=== PATIENT | female | born 1955 | race Two or more races ===

== ENCOUNTER 2018-05-01 20:33 | Inpatient (IN) | payer OTHER, MEDICAID ==
[~2018-05-01] VITALS: Ht 154.9 cm; Wt 57.4 kg
[~2018-05-01 20:33] MED LIST: ASPI81TA52 PO; HYDR12.522 PO; OMEP-84 PO; VALS160T2 PO
[2018-05-01] MEDS ORDERED: temazepam 15mg capsule PO PRN (21:00)
[2018-05-01 21:02] LABS: BASOPHILS % (AUTO) 0.5 % (0-1); EOSINOPHILS # (AUTO) 0.2 X10'3 (0-0.9); HEMATOCRIT 43.7 % (35.0-45.0); HEMOGLOBIN 14.7 g/dl (12.0-16.0); LYMPHOCYTES # (AUTO) 2.5 X10'3 (1.1-4.8); LYMPHOCYTES % (AUTO) 36.2 % (21-51); MEAN CORPUSCULAR HEMOGLOBIN 31.2 PG (27.0-31.0); MEAN CORPUSCULAR HGB CONC 33.6 % (33.0-36.5); MEAN CORPUSCULAR VOLUME 92.9 FL (78-98); MEAN PLATELET VOLUME 7.8 FL (7.4-10.4); MONOCYTES # (AUTO) 0.6 X10'3 (0-0.9); NEUTROPHILS # (AUTO) 3.6 X10'3 (1.8-7.7); NEUTROPHILS % (AUTO) 52.3 % (42-75); PLATELET COUNT 261 X10'3 (140-440); RED CELL DISTRIBUTION WIDTH 12.8 % (11.5-14.5); WHITE BLOOD COUNT 6.9 X10'3 (4.5-11.0)
[2018-05-01 21:18] LABS: ALANINE AMINOTRANSFERASE 29 U/L (12-78); ALKALINE PHOSPHATASE 135 IU/L (46-116); ANION GAP 8 (8-16); ASPARTATE AMINO TRANSFERASE 23 U/L (10-37); BILIRUBIN,TOTAL 0.4 MG/DL (0.1-1.0); BLOOD UREA NITROGEN 17 MG/DL (7-18); BUN/CREATININE RATIO 19.1 (6.6-38.0); CALCIUM 9.5 MG/DL (8.5-10.1); CHLORIDE 103 MMOL/L (99-107); CREATININE 0.89 MG/DL (0.40-0.90); GLUCOSE 119 MG/DL (70-104); POTASSIUM 3.3 MMOL/L (3.5-5.1); SODIUM 141 MMOL/L (135-145); TOTAL CARBON DIOXIDE 29.9 MMOL/L (24-32); TOTAL PROTEIN 8.1 G/DL (6.4-8.2); eGFR 64 ML/MIN
[2018-05-01 21:24] LABS: PARTIAL THROMBOPLASTIN TIME 27 SECONDS (22-32)
[2018-05-01] MEDS ORDERED: acetaminophen 325mg tablet PO PRN ×2 (22:55)
[2018-05-01] MEDS ORDERED: morphine 2 MG/ML inj. syringe IV PRN (22:55)
[2018-05-01] MEDS ORDERED: metoclopramide 5 mg/ml inj IV PRN (22:55)
[2018-05-01] MEDS ORDERED: mag hydrox/Alum hydrox/simeth 30ml oral suspension PO PRN (22:55)
[2018-05-01] MEDS ORDERED: HYDROmorphone 1 mg/ml syringe IV PRN (22:55)
[2018-05-01] MEDS ORDERED: bisacodyl 10mg suppository rectal RC PRN (22:55)
[2018-05-01] MEDS ORDERED: HYDROcodone/acetaminophen 10/325mg tab PO PRN (22:55)
[2018-05-01] MEDS ORDERED: ondansetron/PF 4mg/2ml inj IV PRN (22:55)
[2018-05-01] MEDS ORDERED: potassium Cl 20 mEq SR tablet PO PRN ×2 (22:55)
[2018-05-01] MEDS ORDERED: diphenhydrAMINE 50 mg/ml inj IV PRN (22:55)
[2018-05-01] MEDS ORDERED: potassium Cl 40MEQ/NS 500ml 500 ML IV PRN ×2 (22:55)
[2018-05-01] MEDS ORDERED: acetaminophen 650mg rectal suppository RC PRN (22:55)
[2018-05-01] MEDS ORDERED: diphenhydrAMINE 25mg capsule PO PRN (22:55)
[2018-05-01] MEDS ORDERED: magnesium hydroxide 30ml (MOM) UD suspension PO PRN (22:55)
[2018-05-01] MEDS ORDERED: iohexol 350MG/ML 100ml bottle IV ONE (23:03)
[2018-05-01] MEDS ORDERED: metoprolol tartrate 1mg/ml inj IV PRN (23:05)
[2018-05-01] MEDS ORDERED: nitroGLYCERIN 0.4mg SUBLingual tab SL PRN (23:05)
[2018-05-01] MEDS ORDERED: aminophylline 250mg/10ml inj. IV PRN (23:05)
[2018-05-01] MEDS ORDERED: regadenoson 0.4mg/5ml syringe IV ONE (23:05)
[2018-05-01] MEDS ORDERED: MESSAGE TO PHARMACY PO ONE (23:10)
[2018-05-01] MEDS ORDERED: insulin Lispro (HumaLOG) vial - multi-dose SQ SCH (23:10)
[2018-05-01] MEDS ORDERED: dextrose ORAL solution 15 GM/59 ML bottle PO PRN ×2 (23:10)
[2018-05-01] MEDS ORDERED: glucagon, human recombinant 1mg kit SUBCUT PRN (23:10)
[2018-05-01] MEDS ORDERED: dextrose 50%-water 50ml dispensing syringe IV PRN ×2 (23:10)
[2018-05-01 23:30] LABS: D-DIMER < 0.19 MG/L FEU (0-0.50)
[2018-05-01] MEDS: nitroGLYCERIN-Tridil 50MG/D5W 250 ML IV SCH (23:30)
[2018-05-01 23:32] LABS: LIPASE 324 U/L (73-393)
[2018-05-01 23:41] LABS: HEMOGLOBIN A1C 6.6 % (4.5-6.2)
[2018-05-01] MEDS: normal saline 1000ml 1,000 ML IV SCH (23:45)
[2018-05-02] VITALS (15 sets, daily range): BP systolic 149–190; BP diastolic 74–89
[2018-05-02] MEDS: nitroGLYCERIN-Tridil 50MG/D5W 250 ML IV SCH (01:21)
[2018-05-02] MEDS ORDERED: hydrALAZINE 20mg/ml inj. IV PRN (01:35)
[2018-05-02 03:49] LABS: BASOPHILS % (AUTO) 0.5 % (0-1); EOSINOPHILS # (AUTO) 0.3 X10'3 (0-0.9); HEMATOCRIT 39.4 % (35.0-45.0); LYMPHOCYTES # (AUTO) 2.6 X10'3 (1.1-4.8); LYMPHOCYTES % (AUTO) 43.4 % (21-51); MEAN CORPUSCULAR HEMOGLOBIN 30.6 PG (27.0-31.0); MEAN CORPUSCULAR HGB CONC 32.9 % (33.0-36.5); MEAN CORPUSCULAR VOLUME 93.1 FL (78-98); MEAN PLATELET VOLUME 7.9 FL (7.4-10.4); MONOCYTES # (AUTO) 0.5 X10'3 (0-0.9); MONOCYTES % (AUTO) 7.8 % (2-12); NEUTROPHILS # (AUTO) 2.6 X10'3 (1.8-7.7); NEUTROPHILS % (AUTO) 43.3 % (42-75); PLATELET COUNT 217 X10'3 (140-440); RED BLOOD COUNT 4.23 X10'6 (4.20-5.60); RED CELL DISTRIBUTION WIDTH 12.8 % (11.5-14.5); WHITE BLOOD COUNT 5.9 X10'3 (4.5-11.0)
[2018-05-02 04:03] LABS: ALANINE AMINOTRANSFERASE 23 U/L (12-78); ALBUMIN 3.2 G/DL (3.4-5.0); ALBUMIN/GLOBULIN RATIO 0.9 (1.1-1.5); ALKALINE PHOSPHATASE 104 IU/L (46-116); ANION GAP 7 (8-16); ASPARTATE AMINO TRANSFERASE 18 U/L (10-37); BILIRUBIN,TOTAL 0.4 MG/DL (0.1-1.0); BLOOD UREA NITROGEN 17 MG/DL (7-18); BUN/CREATININE RATIO 21.3 (6.6-38.0); CALCIUM 8.5 MG/DL (8.5-10.1); CHLORIDE 106 MMOL/L (99-107); GLUCOSE 114 MG/DL (70-104); POTASSIUM 3.5 MMOL/L (3.5-5.1); SODIUM 141 MMOL/L (135-145); TOTAL CARBON DIOXIDE 27.8 MMOL/L (24-32); TOTAL PROTEIN 6.6 G/DL (6.4-8.2); eGFR 72 ML/MIN
[2018-05-02 04:05] LABS: CHOL/HDL RATIO 2.9 (0.00-4.99); CHOLESTEROL 195 MG/DL (0-200); HDL CHOLESTEROL 68 MG/DL (35-60); LDL CHOLESTEROL 120 MG/DL (50-100); TRIGLYCERIDES 59 MG/DL (20-135)
[2018-05-02] MEDS ORDERED: pantoprazole 40mg Tablet.DR PO SCH (07:30)
[2018-05-02] MEDS ORDERED: metoprolol tartrate 25mg tablet PO SCH (08:00)
[2018-05-02] MEDS ORDERED: K and/or MAG REPLACEMENT MC SCH (08:00)
[2018-05-02] MEDS ORDERED: atorvastatin 20mg tablet PO SCH (08:00)
[2018-05-02] MEDS ORDERED: enoxaparin 60mg/0.6ml syringe SUBCUT SCH (08:00)
[2018-05-02] MEDS ORDERED: docusate sod 100mg capsule PO SCH (08:00)
[2018-05-02] MEDS ORDERED: aspirin 81mg tab.chew PO SCH (08:00)
[2018-05-02] MEDS: normal saline 1000ml 1,000 ML IV SCH (08:55)
[2018-05-02] MEDS ORDERED: regadenoson 0.4mg/5ml syringe IV ONE (11:33)
[2018-05-02] MEDS ORDERED: aminophylline inj. 10 ML IV ONE (11:33)
[2018-05-02] MEDS ORDERED: aspirin 81mg tablet.DR PO SCH (14:10)
[2018-05-02] MEDS ORDERED: HYDROchlorothiazide 25mg tablet PO SCH (14:27)
[2018-05-02] MEDS ORDERED: non-formulary drug (Omeprazole* (Prilosec*) 20 MG) PO SCH (20:00)
[2018-05-02] MEDS ORDERED: insulin glargine (Lantus) pen - multi-dose SQ SCH (21:00)
[2018-05-03] MEDS ORDERED: losartan 50mg tablet PO SCH (08:00)
== END 2018-05-02 16:09 | disposition home or self-care (01) | DRG 206 ==
LOC: ER 20:34 → ED HOLD 22:55 → PCU 3S 05-02 00:09
PROVIDERS: ADMIT Family Medicine; ATTEND Family Medicine
PROC: B32T1ZZ Computerized Tomography (CT Scan) of Left Pulmonary Artery using Low Osmolar Contrast (ICD-10-PCS; principal; 2018-05-01)
PROC: B3201ZZ Computerized Tomography (CT Scan) of Thoracic Aorta using Low Osmolar Contrast (ICD-10-PCS; 2018-05-01)
PROC: B32S1ZZ Computerized Tomography (CT Scan) of Right Pulmonary Artery using Low Osmolar Contrast (ICD-10-PCS; 2018-05-01)
PROC: B4201ZZ Computerized Tomography (CT Scan) of Abdominal Aorta using Low Osmolar Contrast (ICD-10-PCS; 2018-05-01)
PROC: 4A02XM4 Measurement of Cardiac Total Activity, External Approach (ICD-10-PCS; 2018-05-02)
PROC: 3E033HZ Introduction of Radioactive Substance into Peripheral Vein, Percutaneous Approach (ICD-10-PCS; 2018-05-02)
DX: M94.0 Chondrocostal junction syndrome [Tietze] (principal); I16.1 Hypertensive emergency; E11.9 Type 2 diabetes mellitus without complications; E78.00 Pure hypercholesterolemia, unspecified; E78.5 Hyperlipidemia, unspecified; E86.0 Dehydration; E87.6 Hypokalemia; M54.9 Dorsalgia, unspecified; I10 Essential (primary) hypertension; Z87.442 Personal history of urinary calculi; Z87.891 Personal history of nicotine dependence; Z90.710 Acquired absence of both cervix and uterus; Z79.899 Other long term (current) drug therapy
CPT/HCPCS: 36415; 71045; 71275; 78452; 80053; 80061; 82948; 83036; 83690; 83735; 83880; 84100; 84484; 85025; 85379; 85610; 85730; 87070; 93005; 93017; 99285; A9500; G0378; J0280; J0360; J1650; J1815; J2405; J3490; J7030; Q9967